=== PATIENT | female | born 1995 | race African-American/Black ===

== ENCOUNTER 2023-12-17 16:14 | Emergency (ER) | payer SELFPAY ==
[~2023-12-17] VITALS: Ht 185.4 cm; Wt 111.0 kg
[2023-12-17 16:35] VITALS: BP 133/48; PULSE 93; RESP 16; TEMP 98; O2SAT 100
[2023-12-17 17:18] LABS: CLARITY URINE CLEAR (CLEAR); COLOR URINE YELLOW (YELLOW); GLUCOSE URINE NEGATIVE (NEGATIVE); KETONES URINE TRACE (NEGATIVE); LEUKOCYTE ESTERASE URINE NEGATIVE (NEGATIVE); NITRITE URINE NEGATIVE (NEGATIVE); OCCULT BLOOD URINE NEGATIVE (NEGATIVE); PROTEIN URINE NEGATIVE (NEGATIVE); SPECIFIC GRAVITY URINE 1.032 (1.005-1.030)
[2023-12-17 17:39] LABS: BASOPHILS % 0.7 % (0.0-2.0); EOSINOPHILS % 2.2 % (0.0-5.0); HEMATOCRIT. 34.4 % (36.0-48.0); HEMOGLOBIN. 11.1 g/dL (12.0-16.0); LYMPHOCYTES % 38.9 % (20.0-50.0); MEAN CORPUSCULAR HEMOGLOBIN 28.4 pg (28.0-32.0); MEAN CORPUSCULAR HGB CONC 32.1 g/dL (31.0-37.0); MEAN CORPUSCULAR VOLUME 88.5 fL (81.0-99.0); MEAN PLATELET VOLUME 10.5 fl (7.4-10.4); MONOCYTES % 11.4 % (2.0-8.0); NEUTROPHILS % 46.8 % (40.0-76.0); PLATELET 228 x1000/uL (130-400); RED BLOOD CELL COUNT 3.89 mill/uL (4.2-5.4); RED CELL DISTRIBUTION WIDTH 14.1 % (11.6-14.6); WHITE BLOOD COUNT 4.7 x1000/uL (4.5-11.0)
[2023-12-17 17:42] LABS: ALANINE AMINOTRANSFERASE 13 IU/L (10-49); ALBUMIN 4.4 g/dL (3.2-4.8); ASPARTATE AMINOTRANSFERASE 23 IU/L (<34); BILIRUBIN TOTAL 0.4 mg/dL (0.1-1.0); CALCIUM 8.6 mg/dL (8.7-10.4); CARBON DIOXIDE 28 mEq/L (21-32); CHLORIDE 105 mEq/L (98-107); GLUCOSE 80 mg/dL (70-105); POTASSIUM 3.6 mEq/L (3.5-5.1); PROTEIN TOTAL 6.5 g/dL (6.0-8.3); SODIUM 138 mEq/L (136-145); UREA NITROGEN BLOOD 13 mg/dL (9-23)
[2023-12-17 17:44] LABS: HCG SCREEN NEGATIVE
== END 2023-12-17 19:52 | disposition left against medical advice (07) ==
LOC: ER 16:14
DX: N93.9 Abnormal uterine and vaginal bleeding, unspecified (principal); Z53.21 Procedure and treatment not carried out due to patient leaving prior to being seen by health care provider
CPT/HCPCS: 36415; 80053; 81003; 84703; 85025; 99281

== ENCOUNTER 2023-12-18 16:13 | Emergency (ER) | payer SELFPAY ==
[~2023-12-18] VITALS: Ht 177.8 cm; Wt 100.0 kg
[2023-12-18 16:22] VITALS: BP 135/84; PULSE 84; RESP 18; TEMP 98.5; O2SAT 100
[2023-12-18 17:46] LABS: CLARITY URINE CLEAR (CLEAR); COLOR URINE YELLOW (YELLOW); GLUCOSE URINE NEGATIVE (NEGATIVE); KETONES URINE NEGATIVE (NEGATIVE); LEUKOCYTE ESTERASE URINE NEGATIVE (NEGATIVE); NITRITE URINE NEGATIVE (NEGATIVE); OCCULT BLOOD URINE NEGATIVE (NEGATIVE); PH URINE 5.5 (4.5-8.0); PROTEIN URINE NEGATIVE (NEGATIVE); SPECIFIC GRAVITY URINE 1.031 (1.005-1.030)
== END 2023-12-18 18:45 | disposition left against medical advice (07) ==
LOC: ER 16:13
DX: A64 Unspecified sexually transmitted disease (principal); Z53.21 Procedure and treatment not carried out due to patient leaving prior to being seen by health care provider
CPT/HCPCS: 81003; 81025; 87491; 87591; 99281

== ENCOUNTER 2024-01-08 13:15 | Emergency (ER) | payer OTHER ==
[~2024-01-08] VITALS: Ht 185.4 cm; Wt 86.0 kg
[2024-01-08 13:20] VITALS: O2SAT 100
[2024-01-08 13:54] LABS: CLARITY URINE CLEAR (CLEAR); COLOR URINE YELLOW (YELLOW); GLUCOSE URINE NEGATIVE (NEGATIVE); KETONES URINE NEGATIVE (NEGATIVE); LEUKOCYTE ESTERASE URINE NEGATIVE (NEGATIVE); NITRITE URINE NEGATIVE (NEGATIVE); OCCULT BLOOD URINE NEGATIVE (NEGATIVE); PH URINE 5.5 (4.5-8.0); PROTEIN URINE NEGATIVE (NEGATIVE); SPECIFIC GRAVITY URINE 1.023 (1.005-1.030); UROBILINOGEN URINE 0.2 E.U./dL (0.2-1.0)
[2024-01-08 14:34] LABS: BASOPHILS % 0.8 % (0.0-2.0); HEMATOCRIT. 34.7 % (36.0-48.0); HEMOGLOBIN. 11.5 g/dL (12.0-16.0); MEAN CORPUSCULAR HEMOGLOBIN 28.7 pg (28.0-32.0); MEAN CORPUSCULAR HGB CONC 33.1 g/dL (31.0-37.0); MEAN CORPUSCULAR VOLUME 86.9 fL (81.0-99.0); MEAN PLATELET VOLUME 9.9 fl (7.4-10.4); NEUTROPHILS % 50.2 % (40.0-76.0); PLATELET 207 x1000/uL (130-400); RED BLOOD CELL COUNT 3.99 mill/uL (4.2-5.4); RED CELL DISTRIBUTION WIDTH 14.6 % (11.6-14.6); WHITE BLOOD COUNT 3.3 x1000/uL (4.5-11.0)
[2024-01-08 14:50] LABS: CHLORIDE 108 mEq/L (98-107); HCG SCREEN NEGATIVE; POTASSIUM 4.2 mEq/L (3.5-5.1); SODIUM 140 mEq/L (136-145)
[2024-01-08 14:51] LABS: CARBON DIOXIDE 29 mEq/L (21-32)
[2024-01-08 14:52] LABS: CALCIUM 8.8 mg/dL (8.7-10.4)
[2024-01-08 14:56] LABS: CREATININE 0.9 mg/dL (0.6-1.0); GLUCOSE 62 mg/dL (70-105)
[2024-01-08 14:57] LABS: UREA NITROGEN BLOOD 10 mg/dL (9-23)
[2024-01-08 14:58] LABS: ALANINE AMINOTRANSFERASE 9 IU/L (10-49); ALBUMIN 4.3 g/dL (3.2-4.8); ASPARTATE AMINOTRANSFERASE 16 IU/L (<34)
[2024-01-08 14:59] LABS: BILIRUBIN TOTAL 0.5 mg/dL (0.1-1.0)
[2024-01-08] MEDS ORDERED: CLOT15CR27 TP (15:19)
[2024-01-08] MEDS ORDERED: DOXY-456 MT (15:19)
[2024-01-08] MEDS ORDERED: ACET-2708 PO (15:19)
[2024-01-08] MEDS: CEFTRIAXONE SODIUM 1G VIAL IM ONE (15:55)
[2024-01-08] MEDS: LIDOCAINE HCL/PF 1% 10 MG/ML 5ML VIAL INFIL ONE (15:55)
[2024-01-08 15:56] VITALS: BP 130/85; PULSE 100; RESP 16; TEMP 98.9
== END 2024-01-08 15:57 | disposition home or self-care (01) ==
LOC: ER 13:15
DX: N34.2 Other urethritis (principal)
CPT/HCPCS: 99283; 80053; 81003; 84703; 85025; 36415; 96372; J0696; J3490